=== PATIENT | male | born 1990 ===

== ENCOUNTER 2019-01-14 08:00 | Emergency (ER) | payer OTHER ==
[~2019-01-14] VITALS: Ht 177.8 cm; Wt 71.7 kg
[2019-01-14 08:06] VITALS: Ht 177.8 cm; Wt 71.7 kg
--- NOTE | 2019-01-14 08:22 | ERD ---
ER Documentation Chief Complaint Chief Complaint D5W IV FLUID SPLASHED TO RIGHT EYE WHILE AT WORK. NO REDNESS, NO PAIN. 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 Patient was upstairs and states that some IV fluid of D5W accidentally splashed into his eye. Unsure if it was only the IV fluids or any kind of bodily fluids from the patient. Unsure if patient has any history of HIV, hepatitis, or other communicable diseases. Patient has no symptoms. No pain. No changes in his vision. ROS All systems reviewed and are negative except as per history of present illness. FmHx Family History: No diabetes Physical Exam Vitals Vital Signs Date Temp Pulse Resp B/P (MAP) Pulse Ox O2 O2 Flow FiO2 Time Delivery Rate 01/14/19 98.1 53 18 138/63 98 08:06 (88) Physical Exam Const: No acute distress Head: Atraumatic Eyes: Normal Conjunctiva ENT: Normal External Ears, Nose and Mouth. Neck: Full range of motion. Resp: Clear to auscultation bilaterally Cardio: Regular rate and rhythm, no murmurs Procedures/MDM Patient states he had a small amount of IV fluid splashed into his right eye. He is asymptomatic. Unsure of patient's past medical history. [facility] protocol labs ordered. Patient can follow-up with medical records for results. Patient counseled regarding my diagnostic impression and care plan. Prior to discharge all questions answered. Pt agrees with treatment plan and understands strict return precautions. Pt is instructed to follow up with primary care provider within 24-48 hours. Precautionary instructions provided including instructions to return to the ER if not improving or for any worsening or changing symptoms or concerns. Departure Diagnosis: Primary Impression: Chemical exposure of eye Condition: Stable LENY JOLLEY PA-C Jan 14, 2019 08:22
== END 2019-01-14 08:40 | disposition home or self-care (01) ==
LOC: FTE 08:00
DX: T54.2X1A Toxic effect of corrosive acids and acid-like substances, accidental (unintentional), initial encounter (principal)
CPT/HCPCS: 36415; 80076; 85025; 86703; 86706; 86803; 87340; 99283